=== PATIENT | female | born 1960 | race Caucasian/White ===

== ENCOUNTER 2017-12-16 08:06 | Observation (INO) ==
[2017-12-16] MEDS ORDERED: 0.9 % Sodium Chloride 500 ML IVC ONE (12:44)
[2017-12-16] MEDS ORDERED: Ondansetron 4 MG/2 ML VIAL IVP PRN (12:44)
[2017-12-16] MEDS ORDERED: Naloxone 0.4 MG/ML INJ IVP PRN (12:45)
[2017-12-16] MEDS ORDERED: Acetaminophen 325 MG TABLET PO PRN (12:45)
--- NOTE | 2017-12-16 12:50 | Internal Med History&Physical ---
Date of Encounter: 12/16/17 Time of Encounter: 12:48 Internal Medicine - H&P: HPI Chief complaint: Chest pain Admitted From: Direct Admit Plans for Post Hospital Care: Home History of present illness: Ms. Zepeda is a 57 year old female with history of coronary artery disease status post 4 stents, hypertension, hyperlipidemia, CKD 3, gout who presents as a transfer from [facility] for evaluation of chest pain. The patient experienced left-sided chest pain that was about 9 out of 10 in intensity on Thursday while she was at work at [employer]. Her work is physical in nature. She took 3 sublingual nitros and her chest pain went down to 3 out of 10. Chest pain radiated to the left arm. She went home and she experienced chest pain again the following morning. She continued to have chest pain that is similar to the above description throughout the day. She refused to come and get evaluated yesterday and this morning she again experienced chest pain and upon her 's insistence she presented to the ED at [facility] where she underwent a workup. She is hemodynamically stable. She had an EKG which was normal sinus rhythm with no acute ST or T-wave changes. Laboratory workup showed a white count of 14.7. Normal hemoglobin and platelets. Potassium was 3.5, sodium 136, chloride 101, carbon dioxide 23, BUN 22, creatinine 1.63, normal LFTs, d-dimer in normal range, troponin less than 0.03. Upon presentation to our facility her blood pressure was in the 90s systolically. The patient was afebrile. She tells me that she has been having a cough that is productive of yellowish sputum for the last 6 months or so. Denies any headache, blurry vision, nausea, vomiting, shortness of breath, abdominal pain, diarrhea, constipation, urinary symptoms, or neurological symptoms. Internal Medicine - H&P: Meds Allopurinol [Zyloprim 100 MG] 100 mg PO DAILY 12/16/17 [History] Aspirin Enteric Coated [Aspirin EC] 162 mg PO DAILY 12/16/17 [History] Atorvastatin Calcium 80 mg PO DAILY 12/16/17 [History] Cholecalciferol (Vitamin D3) [Vitamin D] 5,000 unit PO BID 12/16/17 [History] Clopidogrel [Plavix] 75 mg PO DAILY 12/16/17 [History] Cyclobenzaprine [Flexeril] 10 mg PO TID PRN 12/16/17 [History] Dicyclomine [Bentyl] 20 mg PO TID 12/16/17 [History] Famotidine [Heartburn Prevention] 20 mg PO DAILY 12/16/17 [History] Furosemide [Lasix] 60 mg PO BID 12/16/17 [History] Isosorbide MONOnitrate [Isosorbide Mononitrate ER] 120 mg PO DAILY 12/16/17 [ History] Magnesium Oxide [Mag-Oxide Magnesium] 400 mg PO BID 12/16/17 [History] Metoprolol Succinate [Toprol Xl] 50 mg PO DAILY 12/16/17 [History] Potassium Chloride [Klor-Con Sprinkle] 20 meq PO BID 12/16/17 [History] 3 Allergy/AdvReac Type Severity Reaction Status Date / Time No Known Allergies Allergy Verified 12/16/17 12:28 All Systems PM: A 10-system review of systems was performed and is negative for pertinent findings except as documented above in the HPI. Review of systems: All systems reviewed are negative except as mentioned above - Constitutional Vitals: Temp Pulse Resp BP Pulse Ox 97.4 F L 61 20 92/58 96 12/16/17 11:41 12/16/17 11:41 12/16/17 11:41 12/16/17 11:41 12/16/17 11:41 Exam: GEN: NAD HEENT: AT, NC, No cyanosis, oral mucosa is moist, No JVD Lymphatics: No lymphadenoapthy Eyes: Extrocular muscles intact, anicteric CVS:RRR. S1, S2, No m/r/g RESP: CTAB ABD: Soft, NT, ND, +BS EXT: No edema, No rashes, 2+ DP NEURO: Nonfocal, CN II-XII intact, No focal motor or sensory deficits Psych: Cooperative, Not anxious or depressed - Assessment and plan (1) Chest pain Current Visit: Yes Status: Acute Assessment and plan: Admit to tele. Trend cardiac enzymes. EKG with no acute ST or T wave changes. NPO after midnight for stress test. nitro PRN. check A1C and lipid panel. Qualifiers: Chest pain type: unspecified Qualified Code(s): R07.9 - Chest pain, unspecified (2) Leucocytosis Current Visit: Yes Status: Acute Assessment and plan: Unclear etiology. Has had a cough for about 6 months or so. CXR clear at [facility]. BP is on the lower side. Will check a UA, lactic acid. No indication for abx for now. Qualifiers: Leukocytosis type: unspecified Qualified Code(s): D72.829 - Elevated white blood cell count, unspecified (3) CAD (coronary artery disease) Current Visit: Yes Status: Acute Assessment and plan: Resume cardiac meds Qualifiers: Coronary Disease-Associated Artery/Lesion type: [place] artery [place] vs. transplanted heart: [place] heart Associated angina: without angina Qualified Code(s): I25.10 - Atherosclerotic heart disease of [place] coronary artery without angina pectoris (4) HLD (hyperlipidemia) Current Visit: Yes Status: Acute Assessment and plan: c/w statin Qualifiers: Hyperlipidemia type: unspecified Qualified Code(s): E78.5 - Hyperlipidemia , unspecified (5) HTN (hypertension) Current Visit: Yes Status: Acute Assessment and plan: BP on the lower side. Will hold BP meds Qualifiers: Hypertension type: essential hypertension Qualified Code(s): I10 - Essential (primary) hypertension (6) CKD (chronic kidney disease) stage 3, GFR 30-59 ml/min Current Visit: Yes Status: Acute Assessment and plan: creatinine 1.63 and BUN 22 at [facility]. h/o CKD. Labs in am (7) DVT prophylaxis Current Visit: Yes Status: Acute Assessment and plan: heparin SQ - Time Spent With Patient Total time spent is greater than 50% in coordination of care (as documented) at patient's floor/unit and/or counseling patient:
[2017-12-16] MEDS ORDERED: Nitroglycerin 0.4 MG TAB.SUBL SL PRN (12:52)
[2017-12-16 13:43] LABS: Bilirubin,Urine Negative (Negative); Blood,Urine Negative (Negative); Clarity,Urine Cloudy (Clear); Color,Urine Yellow (Yellow); Glucose,Urine (UA) Normal (Normal); Ketones,Urine Negative (Negative); Leukocyte Esterase,Urine Small (Negative); Nitrite,Urine Negative (Negative); PH,Urine 5.5 pH Units (5.0-8.0); Protein,Urine Negative (Neg-Trace); Specific Gravity,Urine 1.024 (1.010-1.025); Urobilinogen,Urine Normal (Normal)
[2017-12-16 13:46] LABS: Bacteria,Urine None Seen per hpf (None-Few); Hyaline Casts,Urine None Seen per lpf (None-Few); Squamous Epithelial Cell,Urine Many per lpf (None-Few)
[2017-12-16] MEDS: 0.9 % Sodium Chloride 1,000 ML IVC SCH ×2 (14:17→23:43)
[2017-12-16] MEDS: *HR* Heparin 5,000 UNIT/ML VIAL SQ SCH ×2 (14:18→20:46)
[2017-12-16] MEDS: Furosemide 40 MG TABLET PO SCH (16:13)
[2017-12-16] MEDS: Nicotine 21 MG PATCH.TD24 TD SCH (16:13)
[2017-12-16] MEDS: Cholecalciferol (D-3) 1,000 UNIT TABLET PO SCH (20:46)
[2017-12-17 03:20] LABS: Basophils # 0.1 K/mcL (0.0-0.2); Basophils % 0.7 %; Eosinophils # 0.4 K/mcL (0.0-0.6); Hematocrit 40.8 % (35.3-44.9); Hemoglobin 13.2 g/dL (11.5-15.4); Immature Granulocytes % 0.3 % (0-4); Lymphocytes % 43.3 %; Mean Corpuscular HGB Conc 32.4 g/dL (31.6-35.5); Mean Corpuscular Hemoglobin 29.1 pg (28.0-33.3); Mean Corpuscular Volume 89.9 fL (83.0-100.0); Mean Platelet Volume 12.2 fL (9.4-12.4); Monocytes # 0.6 K/mcL (0.0-1.3); Monocytes % 5.1 %; Neutrophils # 5.5 K/mcL (1.6-8.9); Platelet Count 276 K/mcL (140-400); Red Blood Count 4.54 M/mcL (3.82-4.97); Red Cell Distribution Width 13.6 % (11.5-14.5); Segmented Neutrophils % 47.6 %
[2017-12-17 03:26] LABS: Prothrombin Time 10.2 Seconds (9.4-12.1)
[2017-12-17 03:39] LABS: BUN/Creatinine Ratio 15 (6-26); Blood Urea Nitrogen 20 mg/dL (6-20); Calcium 8.9 mg/dL (8.6-10.3); Carbon Dioxide 24 mEq/L (23-29); Chloride 103 mEq/L (98-107); Chol/HDL Ratio 4.5 (0-4.9); Cholesterol 144 mg/dL (< 200); Glucose 126 mg/dL (70-105); HDL Cholesterol 32 mg/dL (40-59); Magnesium 1.9 mg/dL (1.6-2.6); Osmolality,Calculated 292 (280-300); Potassium 3.3 mEq/L (3.5-5.1); Sodium 139 mEq/L (136-145); Triglycerides 519 mg/dL (< 150); eGFR For African Americans 49 (> 60); eGFR For Non-African Americans 41 (> 60)
[2017-12-17 03:53] LABS: Thyroid Stimulating Hormone 1.042 mcIU/mL (0.340-5.600)
[2017-12-17] MEDS: *HR* Heparin 5,000 UNIT/ML VIAL SQ SCH ×3 (05:27→21:09)
[2017-12-17 08:11] LABS: Estimated Average Glucose 140 mg/dl; Hemoglobin A1C 6.5 %
[2017-12-17] MEDS: Nicotine 21 MG PATCH.TD24 TD SCH ×2 (08:29→11:36)
[2017-12-17] MEDS: Isosorbide MONOnitrate (24 HR) 60 MG TAB.ER.24H PO SCH ×2 (08:30→11:36)
[2017-12-17] MEDS ORDERED: Regadenoson 0.4 MG/5 ML SYRINGE IVP ONE (08:40)
[2017-12-17] MEDS: Furosemide 40 MG TABLET PO SCH ×2 (08:46→15:42)
[2017-12-17] MEDS: Aspirin Enteric Coated 81 MG Tablet PO SCH (08:47)
[2017-12-17] MEDS: Cholecalciferol (D-3) 1,000 UNIT TABLET PO SCH ×2 (08:47→21:10)
[2017-12-17] MEDS: Famotidine 20 MG TABLET PO SCH (08:47)
[2017-12-17] MEDS ORDERED: Potassium Chloride Elixir 20 MEQ/15 ML UDC PO ONE (11:03)
[2017-12-17] MEDS: 0.9 % Sodium Chloride 1,000 ML IVC SCH (15:50)
--- NOTE | 2017-12-17 16:09 | Internal Med Progress Note ---
Date of Encounter: 12/17/17 Time of Encounter: 12:00 - Assessment and plan (1) Chest pain Current Visit: Yes Status: Acute Assessment and plan: Continues to have intermittent retrosternal chest pain. Also noted to have borderline low blood pressure. Nuclear stress test was negative for ischemia/infarct. Lipid profile reviewed, shows elevated triglycerides in 500s. Hemoglobin A1c 6.5%. Follow-up chest x-ray. Continue aspirin, Plavix, statin and beta trish. Telemetry monitoring. Serial troponins negative. Qualifiers: Chest pain type: unspecified Qualified Code(s): R07.9 - Chest pain, unspecified (2) Leucocytosis Current Visit: Yes Status: Acute Assessment and plan: Improving. Follow-up chest x-ray and urine dipstick. Qualifiers: Leukocytosis type: unspecified Qualified Code(s): D72.829 - Elevated white blood cell count, unspecified (3) CAD (coronary artery disease) Current Visit: Yes Status: Chronic Qualifiers: Coronary Disease-Associated Artery/Lesion type: [place] artery [place] vs. transplanted heart: [place] heart Associated angina: without angina Qualified Code(s): I25.10 - Atherosclerotic heart disease of [place] coronary artery without angina pectoris (4) HLD (hyperlipidemia) Current Visit: Yes Status: Chronic Assessment and plan: Discussed elevated triglycerides and recommended dietary restrictions, exercise , smoking cessation along with adherence to statin. Qualifiers: Hyperlipidemia type: mixed hyperlipidemia Qualified Code(s): E78.2 - Mixed hyperlipidemia (5) HTN (hypertension) Current Visit: Yes Status: Chronic Assessment and plan: Blood pressure noted to be low normal. We will decrease the dose of Imdur and Lasix. Continue to monitor closely. Qualifiers: Hypertension type: essential hypertension Qualified Code(s): I10 - Essential (primary) hypertension (6) DVT prophylaxis Current Visit: Yes Status: Acute (7) CKD (chronic kidney disease) stage 3, GFR 30-59 ml/min Current Visit: Yes Status: Chronic Assessment and plan: Serum creatinine noted to be 1.33, at baseline. - Time Spent With Patient Total time spent is greater than 50% in coordination of care (as documented) at patient's floor/unit and/or counseling patient: - Subjective Interval history: Reports having had intermittent retrosternal chest pain, self-limited; no palpitations, dizziness, shortness of breath, cough, fever/chills; - Constitutional Vitals: Temp Pulse Resp BP Pulse Ox 97.9 F 62 14 99/66 97 12/17/17 14:05 12/17/17 14:05 12/17/17 14:05 12/17/17 15:33 12/17/17 14:05 General appearance: Present: A&O X 3, answers questions appropriately - Respiratory Respiratory exam: Present: CTAB. Absent: accessory muscle use, rales, rhonchi, wheezes - Cardiovascular Cardiovascular exam: Present: RRR, +S1, +S2. Absent: diastolic murmur, gallop, rubs, systolic murmur - GI/Abdominal GI/Abdominal exam: Present: normal bowel sounds, soft (obese), no peritoneal signs. Absent: distended, tenderness - Extremities Exam Extremities exam: Present: full ROM, warm, radial pulses palpable and symmetrical. Absent: calf tenderness, cyanotic, pedal edema Internal Medicine: Result - Labs CBC & Chem 7: 12/17/17 01:03 12/17/17 01:03 Labs: Short CBC 12/17/17 Range/Units 01:03 WBC 11.6 H (4.3-11.1) K/mcL Hgb 13.2 (11.5-15.4) g/dL Hct 40.8 (35.3-44.9) % Plt Count 276 (140-400) K/mcL Neutrophils # 5.5 (1.6-8.9) K/mcL BMP 12/17/17 01:03 Sodium 139 Potassium 3.3 L Chloride 103 Carbon Dioxide 24 BUN 20 Creatinine 1.33 H Glucose 126 H Calcium 8.9 Cardiac Enzymes 12/16/17 12/17/17 Range/Units 18:35 01:03 Troponin I < 0.03 < 0.03 (< 0.04) ng/mL - ABG Interpretation ABG results: PT/INR, D-dimer PT 10.2 Seconds (9.4-12.1) 12/17/17 01:03 - Impressions Impressions Chest X-Ray 12/17/17 12:32 IMPRESSION: No acute abnormality. D/ / Casa Ramirez MD / Casa Ramirez MD Interpreting Provider: Casa Ramirez MD Consult Discharge Plan - Plan Referrals: Eligio Felton MD [Primary Care Provider] - 12/24/17 2:45 pm
[2017-12-17] MEDS ORDERED: Furosemide 40 MG TABLET PO ONE (17:00)
[2017-12-17] MEDS: Magnesium Oxide 400 MG TABLET PO SCH (21:10)
[2017-12-18] MEDS: *HR* Heparin 5,000 UNIT/ML VIAL SQ SCH (05:22)
[2017-12-18 05:43] LABS: Basophils # 0.1 K/mcL (0.0-0.2); Basophils % 0.6 %; Eosinophils # 0.3 K/mcL (0.0-0.6); Eosinophils % 2.3 %; Hematocrit 41.4 % (35.3-44.9); Hemoglobin 13.5 g/dL (11.5-15.4); Immature Granulocytes % 0.5 % (0-4); Lymphocytes # 3.8 K/mcL (0.6-4.6); Lymphocytes % 31.4 %; Mean Corpuscular HGB Conc 32.6 g/dL (31.6-35.5); Mean Platelet Volume 11.3 fL (9.4-12.4); Monocytes # 0.8 K/mcL (0.0-1.3); Monocytes % 6.4 %; Neutrophils # 7.2 K/mcL (1.6-8.9); Platelet Count 274 K/mcL (140-400); Red Blood Count 4.65 M/mcL (3.82-4.97); Red Cell Distribution Width 13.6 % (11.5-14.5); Segmented Neutrophils % 58.8 %
[2017-12-18 05:59] LABS: Calcium 8.9 mg/dL (8.6-10.3); Magnesium 2.1 mg/dL (1.6-2.6); Potassium 3.8 mEq/L (3.5-5.1)
[2017-12-18] MEDS: Aspirin Enteric Coated 81 MG Tablet PO SCH (07:32)
[2017-12-18] MEDS: Magnesium Oxide 400 MG TABLET PO SCH (07:33)
[2017-12-18] MEDS: Famotidine 20 MG TABLET PO SCH (07:34)
[2017-12-18] MEDS: Cholecalciferol (D-3) 1,000 UNIT TABLET PO SCH (07:34)
[2017-12-18] MEDS: Nicotine 21 MG PATCH.TD24 TD SCH (07:34)
[2017-12-18] MEDS ORDERED: Furosemide 40 MG TABLET PO SCH (08:00)
[2017-12-18] MEDS ORDERED: Isosorbide MONOnitrate (24 HR) 60 MG TAB.ER.24H PO SCH (09:00)
[2017-12-18] MEDS ORDERED: Metoprolol XL (24 HR) Succ 50 MG TAB.ER.24H PO SCH (09:00)
[2017-12-18 10:34] VITALS: BP 98/57
--- NOTE | 2017-12-18 12:38 | Discharge Summary ---
- NOTES TO OUTPATIENT PROVIDER Notes to Outpatient Provider: Chest pain, ACS ruled out; BP running low, decreasing Imdur and Lasix; Orders not resulted at time of discharge: Pending orders 12/17/17 08:26 NM marjan perf SPECT multi [NM] Routine Date of Encounter: 12/18/17 Time of Encounter: 12:34 - Discharge Diagnosis (1) Chest pain Priority: Primary Status: Acute Qualifiers: Chest pain type: unspecified Qualified Code(s): R07.9 - Chest pain, unspecified (2) Leucocytosis Priority: Primary Status: Resolved Qualifiers: Leukocytosis type: unspecified Qualified Code(s): D72.829 - Elevated white blood cell count, unspecified (3) CAD (coronary artery disease) Priority: Secondary Status: Chronic Qualifiers: Coronary Disease-Associated Artery/Lesion type: [place] artery [place] vs. transplanted heart: [place] heart Associated angina: without angina Qualified Code(s): I25.10 - Atherosclerotic heart disease of [place] coronary artery without angina pectoris (4) HLD (hyperlipidemia) Priority: Secondary Status: Chronic Qualifiers: Hyperlipidemia type: mixed hyperlipidemia Qualified Code(s): E78.2 - Mixed hyperlipidemia (5) HTN (hypertension) Priority: Secondary Status: Chronic Qualifiers: Hypertension type: essential hypertension Qualified Code(s): I10 - Essential (primary) hypertension (6) CKD (chronic kidney disease) stage 3, GFR 30-59 ml/min Priority: Secondary Status: Chronic Hospital course: Ms. Zepeda is a 57 year old female with the above medical problems, who was admitted with retrosternal chest pain. Initial EKG, serial troponins and telemetry monitoring was unremarkable. Patient underwent nuclear stress test, which is negative for acute ischemia or infarct. She was noted to have low normal blood pressure during her hospitalization, dose of Imdur and Lasix are being decreased. She also had mild leukocytosis at admission, no source of infection was found. Urinalysis was not suggestive of UTI, chest x-ray showed no acute infiltrates. She is medically stable for discharge with outpatient follow-up. Discharge discussed with: patient, nurse - Time Spent with Patient Total time spent providing and/or coordinating discharge services: Greater than 30 minutes (40 min) - Discharge Medications Prescriptions: Cyclobenzaprine [Flexeril] 10 mg PO TID PRN #15 tablet PRN Reason: Muscle Pain Furosemide [Lasix] 40 mg PO BIDDIURETIC #30 tablet Isosorbide MONOnitrate (24 HR) [Imdur] 60 mg PO DAILY #30 tab.er.24h Home Medications: Allopurinol [Zyloprim 100 MG] 100 mg PO DAILY 12/16/17 [History] Aspirin Enteric Coated [Aspirin EC] 162 mg PO DAILY 12/16/17 [History] Atorvastatin Calcium 80 mg PO DAILY 12/16/17 [History] Cholecalciferol (Vitamin D3) [Vitamin D3] 5,000 unit PO BID 12/16/17 [History] Clopidogrel [Plavix] 75 mg PO DAILY 12/16/17 [History] Dicyclomine [Bentyl] 20 mg PO TID 12/16/17 [History] Famotidine [Heartburn Prevention] 20 mg PO DAILY 12/16/17 [History] Magnesium Oxide [Mag-Oxide Magnesium] 400 mg PO BID 12/16/17 [History] Metoprolol Succinate [Toprol Xl] 50 mg PO DAILY 12/16/17 [History] Potassium Chloride [Klor-Con Sprinkle] 20 meq PO BID 12/16/17 [History] Cyclobenzaprine [Flexeril] 10 mg PO TID PRN #15 tablet 12/18/17 [Rx] Furosemide [Lasix] 40 mg PO BIDDIURETIC #30 tablet 12/18/17 [Rx] Isosorbide MONOnitrate (24 HR) [Imdur] 60 mg PO DAILY #30 tab.er.24h 12/18/17 [ Rx] Allergies/Adverse Reactions: 3 Allergy/AdvReac Type Severity Reaction Status Date / Time No Known Allergies Allergy Verified 12/16/17 12:28 Date of admission: 12/16/17 11:31 Primary care physician: Eligio Felton MD Discharging clinician: Krystal Guillen Anticipated date of discharge: 12/18/17 - Constitutional Vitals: Temp Pulse Resp BP Pulse Ox 98.1 F 82 16 98/57 95 12/18/17 10:30 12/18/17 10:30 12/18/17 10:30 12/18/17 10:30 12/18/17 10:30 General appearance: Present: A&O X 3, answers questions appropriately - Respiratory Respiratory exam: Present: CTAB. Absent: accessory muscle use, rales, rhonchi, wheezes - Patient Status Disposition: Home, Self-Care Condition: Good Functional capacity at discharge: independent ambulation Overall status at discharge: patient is progressing back to baseline - Discharge Instructions Follow Up With: Eligio Felton MD [Primary Care Provider] - 12/24/17 2:45 pm - Diet and Activity Activity: resume usual activities as tolerated Diet: low fat, low cholesterol, low salt diet
== END 2017-12-18 13:00 | disposition home or self-care (01) ==
LOC: 3ANU → SUATTDRO 11:31
PROVIDERS: ADMIT Internal Medicine; ATTEND Internal Medicine